=== PATIENT | female | born 1965 | race Hispanic/Latino ===

== ENCOUNTER 2025-04-22 06:03 | Day surgery (SDC) | payer OTHER, SELFPAY ==
[2025-04-16 13:45] VITALS: BMI 23.5
[2025-04-22 06:47] VITALS: BP 121/64; BMI 23.5
[2025-04-22] MEDS: NORMOSOL-R/PLASMALYTE-A 1000 IV (06:57)
[2025-04-22] MEDS: TYLENOL 1000 MG PO (06:57)
== END 2025-04-22 09:50 | disposition home or self-care (01) ==
LOC: SDS 06:03
PROVIDERS: ATTENDING PHYSICIAN Surgery; FAMILY PHYSICIAN Internal Medicine
DX: K64.3 Fourth degree hemorrhoids (principal); K62.0 Anal polyp; K64.4 Residual hemorrhoidal skin tags
CPT/HCPCS: 46260; 88304; 93005